=== PATIENT | male | born 1985 | race Caucasian/White ===

== ENCOUNTER 2018-07-01 10:52 | Outpatient (CLI) | payer OTHER ==
--- NOTE | 2018-07-01 14:35 | Diagnostic Imaging Report ---
<p>Your browser does not support iframes.</p> SULTANA NAIDU [facility] [id number] [facility] [address] [place] [address]. [id number] Report Submission Date: Jul 01, 2018 11:35:51 AM CDT Patient Study Name: RASHID PRADHAN Date: Jul 01, 2018 10:58:31 AM CDT Modality Type: DX Gender: M Description: ELBOW 3 VIEWS : 81 Institution: [facility] Physician: SULTANA NAIDU Examination: Plain film left elbow History: PAIN IN POSTERIOR LEFT ELBOW UNKNOWN INJURY Comparison exams: None provided Findings: 3 views of the left elbow demonstrate normal cortical margins. No fracture. No dislocation. Radial head is within normal limits. No joint effusion Impression: No acute osseous abnormality. Electronically signed on Jul 01, 2018 11:35:51 AM CDT by: Saurabh WINTER
== END 2018-07-01 11:10 ==
LOC: RAD 10:52
PROVIDERS: ATTEND Family Medicine
DX: M25.522 Pain in left elbow (principal)
CPT/HCPCS: 73080